=== PATIENT | male | born 1950 | race Caucasian/White ===

== ENCOUNTER → 2018-12-09 | Outpatient (CLI) | payer OTHER | LOC: M.MRI 07:30 | DX: I63.9 Cerebral infarction, unspecified (principal); Z86.73 Personal history of transient ischemic attack (TIA), and cerebral infarction without residual deficits ==

== ENCOUNTER → 2019-02-06 | Outpatient (CLI) | payer OTHER | LOC: M.MRI 10:50 | DX: I61.3 Nontraumatic intracerebral hemorrhage in brain stem (principal); G93.89 Other specified disorders of brain; R90.82 White matter disease, unspecified; G45.9 Transient cerebral ischemic attack, unspecified ==

== ENCOUNTER → 2021-02-03 | Outpatient (CLI) | payer OTHER, MEDICARE | LOC: M.CT 13:29 | PROVIDERS: ATTEND Family Medicine | DX: N20.1 Calculus of ureter (principal); N13.30 Unspecified hydronephrosis; N40.0 Benign prostatic hyperplasia without lower urinary tract symptoms; M54.5 Low back pain; M47.815 Spondylosis without myelopathy or radiculopathy, thoracolumbar region ==